=== PATIENT | female | born 1995 | race Caucasian/White ===

== ENCOUNTER 2016-06-14 20:46 | Emergency (ER) | payer OTHER ==
[~2016-06-14] VITALS: Ht 165.1 cm; Wt 52.1 kg
[~2016-06-14 20:46] MED LIST: TOPI25 PO
[2016-06-14 20:53] VITALS: BP 103/71; PULSE 73; RESP 16; TEMP 98.2; O2SAT 99
[2016-06-14] MEDS ORDERED: CELE10TA PO (21:14)
[2016-06-14] MEDS ORDERED: DEPO150I IM (21:14)
--- NOTE | 2016-06-14 21:21 | PD ---
HPI Chief Complaint: Injury Time Seen by Provider: 21:21 Travel History International Travel<30 days: No Contact w/Intl Traveler<30days: No Traveled to known affect area: No History of Present Illness HPI 20-year-old female presents to the emergency department for evaluation of right hand thumb pain that began about 1 hour ago. Patient states she was holding her roommates 40 pound dog in her arms and the dog jumped out of her arms and onto the ground. States that somehow when the dog jumped down she felt an immediate pain in the base of her right thumb. States that the pain was severe initially and is now a 6 on a scale of 1-10. The pain is aggravated with movement of the base of the thumb and alleviated with rest. Denies any prior injury or trauma to her hand or fingers. Denies , she does not get menstrual periods because she is on Depo progesterone. No other complaints. PFSH Past Medical History Hx Anticoagulant Therapy: No Asthma: Yes Depression: Yes Cardiovascular Problems: No Chemotherapy: No Cerebrovascular Accident: No Diabetes: No Diminished Hearing: No Neurologic: Yes (CAVERNOUS HEMANGIOMA) Respiratory: No Immunizations Current: Yes Migraines: Yes Thyroid Disease: Yes Tetanus Vaccination: Unknown Influenza Vaccination: No ?: Not LMP: DEPO Past Surgical History Abdominal Surgery: Yes (HERNIORRHAPHY) Hysterectomy: No Social History Alcohol Use: No Tobacco Use: No Substance Use: No Allergies-Medications (Allergen,Severity, Reaction): Coded Allergies: Penicillin (Verified Allergy, Severe, 06/14/16) Reported Meds & Prescriptions Reported Meds & Active Scripts Active Reported Celexa (Citalopram Hydrobromide) 10 Mg Tab Unknown Dose PO HS Depo-Provera Inj (Medroxyprogesterone Inj) 150 Mg/Ml Inj Unknown Dose IM Q90D Review of Systems Except as stated in HPI: all other systems reviewed are Neg Physical Exam Narrative GENERAL: Well-nourished and well-developed pleasant female patient in no acute distress who is nontoxic appearing. SKIN: Warm and dry. HEAD: Normocephalic and atraumatic. EYES: No injection, drainage, or hyphema noted. PERRLA. EOMI. ENT: No nasal drainage noted. Oropharynx is clear. NECK: Supple and the trachea is midline. CARDIOVASCULAR: Regular rate and rhythm. RESPIRATORY: Breath sounds are equal bilaterally with no accessory muscle use, wheezing, rhonchi, or crackles. EXTREMITY: Right hand tenderness to palpation at the base of the thumb. Positive snuffbox tenderness. Full range of motion in all joints. No joint swelling. Normal opposition of thumb. Distal extremity neurovascularly intact with intact two point discrimination. NEUROLOGICAL: Awake, alert, and oriented. Normal speech and gait. Cranial nerves are grossly intact. Data Data Last Documented VS Vital Signs Date Time Temp Pulse Resp B/P Pulse Ox O2 Delivery O2 Flow Rate FiO2 06/14/16 21:03 Room Air 06/14/16 20:53 98.2 73 16 103/71 99 Orders Hand, Complete ([id number]) (06/14/16 21:20) [facility] Medical Decision Making Medical Screen Exam Complete: Yes Emergency Medical Condition: Yes Differential Diagnosis Hand sprain versus contusion versus scaphoid fracture Narrative Course 20-year-old female presents to the emergency department for evaluation of right hand pain that began about one hour ago. Patient is afebrile, vital signs are stable. There was no traumatic injury to her hand. She does have snuffbox tenderness. We'll do an x-ray of the right hand. If the x-ray is unremarkable the patient will be placed in a thumb spica splint as we cannot rule out scaphoid fracture. Patient is advised to follow-up with her PCP or and orthopedist for repeat x-rays. X-ray of the right hand is negative for any acute abnormalities. Patient is placed in a thumb spica splint. Discussed all results with the patient. Instructed to follow-up with her PCP as an outpatient. Patient verbalizes understanding and agreement with treatment plan. Diagnosis Primary Impression: Right hand pain Referrals: Primary Care Physician Patient Instructions: General Instructions, Hand Fracture (ED), Hand Sprain (ED ) Additional Instructions: Your x-ray was negative however the location of your pain could be secondary to an occult fracture of the right scaphoid. Splint. Apply ice for 20 minutes on, 20 minutes off. Take [id number] tylenol or ibuprofen for pain. Follow-up with your Primary Care Physician for repeat x-rays. Return to the ED for any acute worsening of symptoms. Med/Other Pt SpecificInfo: No Change to Meds Disposition: 01 DISCHARGE HOME Condition: Stable Meliza Dutta Jun 14, 2016 21:21
--- NOTE | 2016-06-14 21:52 | RADHPO ---
EXAM DATE/TIME: 06/14/2016 21:40 [facility] COMPARISON: No previous studies available for comparison. INDICATIONS : Right hand pain after picking up dog. MEDICAL HISTORY : None. SURGICAL HISTORY : None. ENCOUNTER: Initial ACUITY: 1 day PAIN SCORE: 6/10 LOCATION: Right hand FINDINGS: Three view examination of the right hand demonstrates no soft tissue swelling, dislocation, or fractu re. The carpal bones appear intact. The interphalangeal and metacarpophalangeal joints are intact. Bony mineralization is normal. CONCLUSION: Unremarkable examination of the right hand. Colin Pacheco Jr., MD on June 14, 2016 at 21:49 Board Certified Radiologist. This report was verified electronically.
== END 2016-06-14 22:28 | disposition home or self-care (01) ==
LOC: PHEFT 20:46
DX: M79.641 Pain in right hand (principal); E07.9 Disorder of thyroid, unspecified; Z87.09 Personal history of other diseases of the respiratory system; Z86.59 Personal history of other mental and behavioral disorders; Z86.69 Personal history of other diseases of the nervous system and sense organs; X58.XXXA Exposure to other specified factors, initial encounter; Y93.K9 Activity, other involving animal care
CPT/HCPCS: 73130; 99283; L3808

== ENCOUNTER 2016-06-17 15:15 | Emergency (ER) | payer OTHER ==
[~2016-06-17] VITALS: Ht 165.1 cm; Wt 53.3 kg
[~2016-06-17 15:15] MED LIST changes: +CELE10TA PO; +DEPO150I IM; -TOPI25 PO
[2016-06-17 15:18] VITALS: BP 106/76; PULSE 72; RESP 17; TEMP 98.3; O2SAT 99
[2016-06-17] MEDS ORDERED: PANTOPRAZOLE SODIUM 40 MG VIAL IVP ONE (15:45)
[2016-06-17] MEDS ORDERED: SODIUM CHLORIDE 0.9% FLUSH 10 ML FLUSH IV FLUSH PRN (15:45)
[2016-06-17] MEDS ORDERED: KETOROLAC TROMETHAMINE 30 MG/ML (IVP) VIAL IVP ONE (15:45)
--- NOTE | 2016-06-17 15:48 | PD ---
HPI Chief Complaint: Abdominal Pain Time Seen by Provider: 15:33 Travel History International Travel<30 days: No Contact w/Intl Traveler<30days: No Traveled to known affect area: No History of Present Illness HPI Patient is a 20-year-old female presents emergency department with complaint of epigastric abdominal pain times one to 2 days. Some nausea but no vomiting. She denies any bowel or urinary symptoms. Patient denies any history of pancreatic or hepatobiliary pathology. She recently fractured her thumb that has been taking NSAIDs. No fevers or chills. PFSH Past Medical History Hx Anticoagulant Therapy: No Asthma: Yes Depression: Yes Cardiovascular Problems: No Chemotherapy: No Cerebrovascular Accident: No Diabetes: No Diminished Hearing: No Neurologic: Yes (CAVERNOUS HEMANGIOMA) Respiratory: No Immunizations Current: Yes Migraines: Yes Thyroid Disease: Yes Influenza Vaccination: No ?: Not LMP: ON DEPO Past Surgical History Abdominal Surgery: Yes (HERNIORRHAPHY) Hysterectomy: No Social History Alcohol Use: No Tobacco Use: No Substance Use: No Allergies-Medications (Allergen,Severity, Reaction): Coded Allergies: Penicillin (Verified Allergy, Severe, 06/17/16) Reported Meds & Prescriptions Reported Meds & Active Scripts Active Reported Celexa (Citalopram Hydrobromide) 10 Mg Tab Unknown Dose PO HS Depo-Provera Inj (Medroxyprogesterone Inj) 150 Mg/Ml Inj Unknown Dose IM Q90D Review of Systems Except as stated in HPI: all other systems reviewed are Neg Physical Exam Narrative GENERAL: Well-appearing female in no acute distress SKIN: Focused skin assessment warm/dry. HEAD: Normocephalic. EYES: No scleral icterus. No injection or drainage. ENT: Mucous membranes pink and moist. NECK: Supple CARDIOVASCULAR: Regular rate and rhythm. RESPIRATORY: No accessory muscle use. GASTROINTESTINAL: Abdomen soft, minimal epigastric tenderness palpation without rebound or guarding MUSCULOSKELETAL: Normal gait NEUROLOGICAL: Awake and alert. Normal speech. PSYCHIATRIC: Appropriate mood and affect; insight and judgment normal. Data Data Last Documented VS Vital Signs Date Time Temp Pulse Resp B/P Pulse Ox O2 Delivery O2 Flow Rate FiO2 06/17/16 15:18 98.3 72 17 106/76 99 Orders Complete Blood Count With Diff (06/17/16 15:42) Comprehensive Metabolic Panel (06/17/16 15:42) Lipase (06/17/16 15:42) Iv Access Insert/Monitor (06/17/16 15:42) Pantoprazole Inj (Protonix Inj) (06/17/16 15:45) Sodium Chloride 0.9% Flush (Ns Flush) (06/17/16 15:45) Ketorolac Inj (Toradol Inj) (06/17/16 15:45) MDM Medical Decision Making Medical Screen Exam Complete: Yes Emergency Medical Condition: Yes Medical Record Reviewed: Yes Differential Diagnosis 20-year-old female here with epigastric abdominal pain with some nausea. Patient has been increasing NSAID use since recent thumb fracture. Suspect gastritis versus GERD, differential includes pancreatitis, hepatobiliary pathology. Narrative Course Patient placed on monitor, IV established and blood obtained. Given IV PPI, Toradol. CBC, CMP, lipase ordered and are pending at the time this dictation. Patient signed out to oncoming provider waiting results of same for hopeful disposition home. Kaylee Zuluaga MD Jun 17, 2016 15:48
[2016-06-17 16:05] LABS: AUTOMATED NEUTROPHIL # 4.4 TH/MM3 (1.8-7.7); BASOPHIL # 0.1 TH/MM3 (0-0.2); BASOPHIL % 0.8 % (0.0-2.0); EOSINOPHIL # 0.3 TH/MM3 (0-0.4); EOSINOPHIL % 3.4 % (0.0-4.0); HEMATOCRIT 40.3 % (35.0-46.0); HEMO FLAGS DIFF FINAL; LYMPH % 29.6 % (9.0-44.0); LYMPHOCYTE # 2.2 TH/MM3 (1.0-4.8); MEAN CELL VOLUME 89.5 FL (80.0-100.0); MEAN CORPUSCULAR HEMOGLOBIN 29.8 PG (27.0-34.0); MEAN CORPUSCULAR HGB CONC 33.3 % (32.0-36.0); NEUT % 60.2 % (16.0-70.0); PLATELET COUNT 140 TH/MM3 (150-450); RED BLOOD COUNT 4.51 MIL/MM3 (4.00-5.30); RED CELL DISTRIBUTION WIDTH 11.9 % (11.6-17.2); WHITE BLOOD COUNT 7.4 TH/MM3 (4.0-11.0)
[2016-06-17 16:11] LABS: CHLORIDE 111 MEQ/L (98-107); SODIUM (NA) 144 MEQ/L (136-145)
[2016-06-17 16:15] LABS: ANION GAP 7 MEQ/L (5-15); BICARBONATE 25.6 MEQ/L (21.0-32.0); BLOOD UREA NITROGEN 9 MG/DL (7-18)
[2016-06-17 16:18] LABS: ALT (GPT) 15 U/L (10-53); AST (GOT) 17 U/L (15-37); GLOMERULAR FILTRATION RATE 98 ML/MIN (>89)
[2016-06-17 16:20] LABS: TOTAL BILIRUBIN ADULT 0.9 MG/DL (0.2-1.0)
[2016-06-17 16:21] LABS: ALKALINE PHOSPHATASE 49 U/L (45-117)
[2016-06-17 16:27] LABS: POTASSIUM 4.5 MEQ/L (3.5-5.1)
[2016-06-17] MEDS ORDERED: RANI150C PO (16:38)
--- NOTE | 2016-06-17 16:38 | PD ---
Data Data Last Documented VS Vital Signs Date Time Temp Pulse Resp B/P Pulse Ox O2 Delivery O2 Flow Rate FiO2 06/17/16 15:18 98.3 72 17 106/76 99 Orders Complete Blood Count With Diff (06/17/16 15:42) Comprehensive Metabolic Panel (06/17/16 15:42) Lipase (06/17/16 15:42) Iv Access Insert/Monitor (06/17/16 15:42) Pantoprazole Inj (Protonix Inj) (06/17/16 15:45) Sodium Chloride 0.9% Flush (Ns Flush) (06/17/16 15:45) Ketorolac Inj (Toradol Inj) (06/17/16 15:45) Labs Laboratory Tests Test 06/17/16 15:50 White Blood Count 7.4 TH/MM3 Red Blood Count 4.51 MIL/MM3 Hemoglobin 13.4 GM/DL Hematocrit 40.3 % Mean Corpuscular Volume 89.5 FL Mean Corpuscular Hemoglobin 29.8 PG Mean Corpuscular Hemoglobin 33.3 % Concent Red Cell Distribution Width 11.9 % Platelet Count 140 TH/MM3 Mean Platelet Volume 9.2 FL Neutrophils (%) (Auto) 60.2 % Lymphocytes (%) (Auto) 29.6 % Monocytes (%) (Auto) 6.0 % Eosinophils (%) (Auto) 3.4 % Basophils (%) (Auto) 0.8 % Neutrophils # (Auto) 4.4 TH/MM3 Lymphocytes # (Auto) 2.2 TH/MM3 Monocytes # (Auto) 0.4 TH/MM3 Eosinophils # (Auto) 0.3 TH/MM3 Basophils # (Auto) 0.1 TH/MM3 CBC Comment DIFF FINAL Differential Comment Sodium Level 144 MEQ/L Potassium Level 4.5 MEQ/L Chloride Level 111 MEQ/L Carbon Dioxide Level 25.6 MEQ/L Anion Gap 7 MEQ/L Blood Urea Nitrogen 9 MG/DL Creatinine 0.74 MG/DL Estimat Glomerular Filtration 98 ML/MIN Rate Random Glucose 79 MG/DL Calcium Level 9.3 MG/DL Total Bilirubin 0.9 MG/DL Aspartate Amino Transf 17 U/L (AST/SGOT) Alanine Aminotransferase 15 U/L (ALT/SGPT) Alkaline Phosphatase 49 U/L Total Protein 6.7 GM/DL Albumin 4.0 GM/DL Lipase 90 U/L [facility] Supervised Visit with [facility]: Yes Narrative Course 20-year-old woman presents emergency Department with gastritis symptoms. Initially evaluated by Dr. Gutiérrez, signed out to me to follow-up on results of diagnostic testing. CBC is unremarkable. CMP is unremarkable Lipase is normal We'll recommend avoiding NSAIDs. Ranitidine as needed. Tylenol for pain. Diagnosis Primary Impression: Gastritis Qualified Code: K29.00 - Acute gastritis without hemorrhage, unspecified gastritis type Additional Instruction: Avoid NSAID such as ibuprofen or Aleve. Follow up with her primary doctor in 2-4 days if not feeling improved. Take ranitidine as prescribed for 2 weeks. Use acetaminophen as needed for pain. Med/Other Pt SpecificInfo: Prescription(s) given Scripts Ranitidine 150 Mg [id number] Mg PO BID #60 CAP Prov:Dalton Neves MD 06/17/16 Disposition: 01 DISCHARGE HOME Condition: Stable Dalton Neves MD Jun 17, 2016 16:38
[2016-06-17 16:53] VITALS: BP 103/64
== END 2016-06-17 16:58 | disposition home or self-care (01) ==
LOC: PHED 15:15
DX: K29.70 Gastritis, unspecified, without bleeding (principal)
CPT/HCPCS: 80053; 83690; 85025; 96374; 96375; 99284; C9113; J1885

== ENCOUNTER 2017-02-14 07:58 | Emergency (ER) | payer OTHER ==
[~2017-02-14] VITALS: Ht 165.1 cm; Wt 50.0 kg
[~2017-02-14 07:58] MED LIST changes: +RANI150C PO
[2017-02-14 08:08] VITALS: BP 100/58; PULSE 72; RESP 16; TEMP 97.7; O2SAT 95
[2017-02-14] MEDS ORDERED: KETOROLAC TROMETHAMINE 60 MG/2 ML (IM) VIAL IM ONE (08:15)
[2017-02-14] MEDS ORDERED: TETANUS/DIPHTHERIA TOXOID ADULT 0.5 ML VIAL IM ONE (08:15)
[2017-02-14] MEDS ORDERED: metroNIDAZOLE 500 MG TAB PO ONE (08:30)
[2017-02-14] MEDS ORDERED: DOXYCYCLINE HYCLATE 100 MG CAP PO ONE (08:30)
--- NOTE | 2017-02-14 08:38 | RADRPT ---
EXAM DATE/TIME: 02/14/2017 08:20 [facility] COMPARISON: HAND RIGHT COMPLETE ([id number]), June 14, 2016, 21:40. INDICATIONS : Dog bite to both medial & lateral aspects of right distal hand. MEDICAL HISTORY : Thyroid disease. Asthma. Cavernous hemangioma. SURGICAL HISTORY : Double hernia repair. ENCOUNTER: Initial ACUITY: 1 day PAIN SCORE: 10/10 LOCATION: Right hand FINDINGS: Three view examination of the right hand demonstrates no soft tissue swelling, dislocation, or fractu re. The carpal bones appear intact. The interphalangeal and metacarpophalangeal joints are intact. Bony mineralization is normal. No radiopaque foreign bodies observed. CONCLUSION: Unremarkable examination of the right hand. Colin Pacheco Jr., MD on February 14, 2017 at 8:34 Board Certified Radiologist. This report was verified electronically.
[2017-02-14] MEDS ORDERED: ACETAMINOPHEN/HYDROcodone 325 MG/5 MG TAB PO ONE (08:45)
[2017-02-14] MEDS ORDERED: DOXY100C PO (09:00)
[2017-02-14] MEDS ORDERED: TRAM50 PO (09:00)
[2017-02-14] MEDS ORDERED: METR-1 PO (09:00)
--- NOTE | 2017-02-14 09:00 | PD ---
HPI . Dog bite Chief Complaint: Bite or Sting Time Seen by Provider: 08:13 Travel History International Travel<30 days: No Contact w/Intl Traveler<30days: No Traveled to known affect area: No History of Present Illness HPI This patient presents with the chief complaint of a dog bite to her right wrist. This occurred just prior to arrival. She was bitten by her own dog who' s shots are up to date. She reports that it was a provoked bite. She has another dog who is . The 2 dogs were growling at each other and snapped at each other. She was trying to break it up when she was inadvertently bitten in the right wrist. She presents complaining with right wrist pain which she rates 10/10 and which is exacerbated by movement and palpation. PFSH Past Medical History Hx Anticoagulant Therapy: No Asthma: Yes Depression: Yes Cardiovascular Problems: No Chemotherapy: No Cerebrovascular Accident: No Diabetes: No Diminished Hearing: No Neurologic: Yes (CAVERNOUS HEMANGIOMA) Respiratory: No Immunizations Current: Yes Migraines: Yes Thyroid Disease: Yes Tetanus Vaccination: Unknown ?: Not Past Surgical History Abdominal Surgery: Yes (HERNIORRHAPHY) Hysterectomy: No Other Surgery: Yes (DOUBLE HERNIA REPAIR) Social History Alcohol Use: No Tobacco Use: No Substance Use: No Allergies-Medications (Allergen,Severity, Reaction): Coded Allergies: Sulfa (Sulfonamide Antibiotics) (Verified Allergy, Severe, 02/14/17) penicillin G (Unverified Allergy, Severe, 02/14/17) Reported Meds & Prescriptions Reported Meds & Active Scripts Active Reported Celexa (Citalopram Hydrobromide) 10 Mg Tab Unknown Dose PO HS Depo-Provera Inj (Medroxyprogesterone Inj) 150 Mg/Ml Inj Unknown Dose IM Q90D Review of Systems Except as stated in HPI: all other systems reviewed are Neg Physical Exam Narrative GENERAL: Awake and alert and in no acute distress. SKIN: Warm and dry. She has 2 lacerations on the right wrist. One on the extensor surface of the wrist is about a centimeter long and is gaping. The one on the flexor side of the wrist is a puncture wound which is only a couple of millimeters long. She has associated bruising and swelling. HEAD: Normocephalic/atraumatic. EYES: Pupils are equal. Extraocular movements are intact. NECK: Normal range of motion. CARDIOVASCULAR: Regular rate and rhythm. RESPIRATORY: Nonlabored respirations. MUSCULOSKELETAL: Atraumatic. Tender at the distal right radius/ulna. NEUROLOGICAL: Nonfocal. PSYCHIATRIC: Appropriate mood and affect. Data Data Last Documented VS Vital Signs Date Time Temp Pulse Resp B/P (MAP) Pulse Ox O2 Delivery O2 Flow Rate FiO2 02/14/17 08:08 97.7 72 16 100/58 (72) 95 Orders Orders Hand, Complete ([id number]) (02/14/17 08:15) Ice/Cold Pack (02/14/17 08:15) Ketorolac Inj (Toradol Inj) (02/14/17 08:15) Tetanus/Diphtheria Tox Adult (Tetanus/Di (02/14/17 08:15) Doxycycline (Vibramycin) (02/14/17 08:30) Metronidazole (Flagyl) (02/14/17 08:30) Acetamin-Hydrocod 325-5 Mg ([place] 5-325 (02/14/17 08:45) MDM Medical Decision Making Medical Screen Exam Complete: Yes Emergency Medical Condition: Yes Differential Diagnosis Differential diagnosis of animal bite includes but is not limited to wound, wound infection, retained foreign body, open fracture, sepsis, rabies. Narrative Course This patient presents with a dog bite to the right wrist. Her pain was treated with IM Toradol and oral [place]. Tetanus was updated. She is allergic to penicillin and sulfa drugs. She was given prophylactic doxycycline and Flagyl. She will be discharged on doxycycline and Flagyl. This is per the recommendation of up-to-date. Last Impressions Hand X-Ray 02/14/17814 Signed Impressions: Service Date/Time: Tuesday, February 14, 2017 08:20 - CONCLUSION: Unremarkable examination of the right hand. Colin Pacheco Jr., MD Procedures Procedure Narrative LACERATION LOCATION: Right wrist LENGTH: 1 cm REPAIR: The wound was copiously irrigated and explored without evidence of foreign body, tendon injury or neurovascular injury. The wound was closed using Steri-Strips. This was a single layer repair. A sterile dressing was applied. The patient was advised to keep the dressing clean and dry. Patient tolerated the procedure well. Diagnosis Primary Impression: Dog bite of arm Qualified Codes: S41.151A - Open bite of right upper arm, initial encounter; W54.0XXA - Bitten by dog, initial encounter Patient Instructions: Animal Bite (DC), General Instructions, Narcotic given in the ED Med/Other Pt SpecificInfo: Prescription(s) given Scripts Tramadol (Ultram) 50 Mg Tab 50 MG PO Q4H Y for PAIN, #12 TAB 0 Refills Prov: Anna Chen MD 02/14/17 Metronidazole (Flagyl) 500 Mg Tab 500 MG PO TID for Infection for 3 Days, TAB 0 Refills Prov: Anna Chen MD 02/14/17 Doxycycline Hyclate (Doxycycline Hyclate) 100 Mg Cap 100 MG PO BID for Infection for 3 Days, #6 CAP 0 Refills Prov: Anna Chen MD 02/14/17 Disposition: 01 DISCHARGE HOME Condition: Stable Anna Chen MD Feb 14, 2017 09:00
[2017-02-14 09:37] VITALS: BP 92/61; PULSE 74; RESP 16; O2SAT 99
== END 2017-02-14 09:39 | disposition home or self-care (01) ==
LOC: PHEFT 07:58
DX: S61.551A Open bite of right wrist, initial encounter (principal); W54.0XXA Bitten by dog, initial encounter; Z23 Encounter for immunization
CPT/HCPCS: 73130; 90471; 90714; 96372; 99284; J1885